=== PATIENT | female | born 1975 | race Caucasian/White ===

== ENCOUNTER 2019-09-08 14:08 | Emergency (ER) | payer OTHER, MEDICARE ==
[2019-09-08] MEDS ORDERED: KETOROLAC 60 MG/2 ML VIAL IM STA (14:37)
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
[2019-09-08 15:01] VITALS: BP 141/96; PULSE 100; RESP 18; TEMP 97.2
== END 2019-09-08 15:00 | disposition home or self-care (01) ==
LOC: EC 14:08
DX: M54.6 Pain in thoracic spine (principal); M54.5 Low back pain; Z88.0 Allergy status to penicillin; Z88.2 Allergy status to sulfonamides; V89.2XXA Person injured in unspecified motor-vehicle accident, traffic, initial encounter; Y92.89 Other specified places as the place of occurrence of the external cause
CPT/HCPCS: 99283; 96372; J1885